=== PATIENT | male | born 1975 | race Asian ===

== ENCOUNTER 2019-04-15 08:18 | Outpatient (CLI) | payer OTHER ==
--- NOTE | 2019-04-15 09:55 | MRI ---
MRI LEFT ELBOW WITHOUT CONTRAST: Date: 04/15/2019 INDICATION: History of left elbow pain. COMPARISON: Left elbow radiograph dated 09/28/2018. FINDINGS: There is increased T2 signal involving the medial and mid aspect of the triceps tendon near its inser tion consistent with triceps tendinitis. There is mild T2 signal involving the soft tissues overlying the olecranon process consistent with a very mild olecranon bursitis. The biceps and brachialis inse rtions are normal appearing. The common flexor and common extension origins appear within normal limi ts. The ulnar collateral ligament, radial collateral ligament, and lateral ulnar collateral ligament appear within normal limits. No osteochondral defect is evident. No joint effusion is noted. The ulna r and median nerves appear within normal limits. IMPRESSION: Mild triceps tendinitis with mild olecranon bursitis. POS: [facility]
== END 2019-04-15 08:19 | disposition home or self-care (01) ==
LOC: BICMRI 08:18
PROVIDERS: ATTEND Orthopaedic Surgery
DX: M25.522 Pain in left elbow (principal); M70.22 Olecranon bursitis, left elbow; M77.9 Enthesopathy, unspecified